=== PATIENT | male | born 1930 | race Caucasian/White ===

== ENCOUNTER 2017-11-21 08:20 | Emergency (ER) | payer OTHER ==
[~2017-11-21] VITALS: Ht 165.1 cm; Wt 74.8 kg
[~2017-11-21 08:20] MED LIST: AMLODIPINE BESYL5 M1 PO; ATORVASTATIN CA10 M1 PO; CRANBERRY425 MG PO; FISH OIL 1,001000 MG PO; FOSINOPRIL SODI20 M1 PO; LO-DOSE ASPIRIN81 MG PO; MECLIZINE HCL25 MG PO; METOPROLOL TART25 M1 PO; MULTIVITAMINS1 EAC7 PO; NEXIUM40 M1 PO; PLAVIX75 M1 PO; POLYETHYLENE G255 GM PO; SM CALCIUM PO; SYNTHROID50 MCG PO; TAMSULOSIN HCL0.4 M1 PO; VITAMIN D31000 UNI1 PO
[2017-11-21 08:25] VITALS: BP 153/71
--- NOTE | 2017-11-21 09:03 | ED ANIMAL BITE/WOUND CHECK ---
History of Present Illness General Chief Complaint: Suture Removal/Wound Recheck Stated Complaint: SUTURE REMOVAL Source: patient, old records Exam Limitations: no limitations Vital Signs & Intake/Output Vital Signs & Intake/Output Vital Signs Date Time Temp Pulse Resp B/P B/P Pulse O2 O2 Flow FiO2 Mean Ox Delivery Rate 11/21 0825 98.7 80 20 153/71 98 Room Air Allergies Coded Allergies: Penicillins (Severe, UNKNOWN PER PT 01/29/17) amoxicillin (Mild, RASH 01/24/17) pneumococcal vaccine (Mild, RASH AND RED ALL OVER BODY FROM PNEUMONIA SHOT 01/29) gemfibrozil (UNKNOWN PER PT 01/29/17) Reconcile Medications Amlodipine Besylate 5 MG TABLET 1 TAB PO 0800 BP (Reported) Atorvastatin Calcium 10 MG TABLET 1 TAB PO 1900 HIGH CHOLESTROL (Reported) Cholecalciferol (Vitamin D3) (Vitamin D3) 1,000 UNIT CAPSULE 1 CAP PO 1400 HEALTH SUPPLEMENT (Reported) Clopidogrel Bisulfate (Plavix) 75 MG TABLET 1 TAB PO DAILY STROKE PREVENTION Cranberry Extract (Cranberry) (Unknown Strength) CAPSULE (Unknown Dose) PO DAILY SUPPLEMENT (Reported) Esomeprazole (Nexium) 40 MG CAPSULE.DR 1 CAP PO 0700 ACID REFLUX (Reported) Fosinopril Sodium 20 MG TABLET 1 TAB PO 0800 BP (Reported) Levothyroxine Sodium (Synthroid) 50 MCG TABLET 1 TAB PO 0700 THYROID HEALTH ( Reported) Meclizine HCl 25 MG TABLET 1 TAB PO TIDPRN PRN DIZZINESS Metoprolol Tartrate 25 MG TABLET 25 MG PO BID A.FIB . Multivitamin With Minerals (Multivitamins With Minerals) 1 EACH TABLET 1 TAB PO DAILY SUPPLEMENT (Reported) [place]-3/Dha/Epa/Fish Oil (Fish Oil 1,000 MG Softgel) (Unknown Strength) CAPSULE (Unknown Dose) PO 0800 OMEGA RED SUPPLEMENT (Reported) Polyethylene Glycol 3350 17 GRAM/DOSE POWDER 17 GM PO 1400 GI (Reported) Tamsulosin HCl 0.4 MG CAP.ER.24H 1 CAP PO 1730 PROSTATE (Reported) Triage Note: PT TO ED SUTURE REMOVAL TO LEFT THUMB, PLACED 11/10 HERE. DENIES PAIN. Triage Nurses Notes Reviewed? yes Onset: Last week Duration: week(s):, better Timing: recent history Injury Environment: home Is Injury an Animal Bite? No Severity: mild No Modifying Factors: none HPI: Patient presents for suture removal left thumb. He denies fever chills nausea vomiting diarrhea abdominal pain chest pain shortness breath headache dysuria rash bleeding. Past History Travel History Traveled to [place] past 21 day No Medical History Any Pertinent Medical History? see below for history Neurological: NONE EENT: NONE Cardiovascular: AFIB, hypertension, hyperlipidemia Respiratory: NONE Gastrointestinal: GERD Hepatic: NONE Renal: benign prost hyperplasia Musculoskeletal: NONE Psychiatric: NONE Endocrine: hypothyroidism Blood Disorders: NONE Cancer(s): NONE History of MRSA: No History of VRE: No History of CDIFF: No Tetanus Vaccine: 11/10/17 Surgical History Surgical History: non-contributory Psychosocial History Who do you live with Spouse Services at Home None What is your primary language Yakut Tobacco Use: Never used ETOH Use: denies use Illicit Drug Use: denies illicit drug use Family History Family History, If Any: BROTHER Family hx of lung cancer Hx Contributory? No Review of Systems Review of Systems Constitutional: Reports: no symptoms. EENTM: Reports: no symptoms. Respiratory: Reports: no symptoms. Cardiovascular: Reports: no symptoms. GI: Reports: no symptoms. Genitourinary: Reports: no symptoms. Musculoskeletal: Reports: no symptoms. Skin: Reports: no symptoms. Neurological/Psychological: Reports: no symptoms. Hematologic/Endocrine: Reports: no symptoms. Immunologic/Allergic: Reports: no symptoms. All Other Systems: Reviewed and Negative Physical Exam Physical Exam General Appearance: well developed/nourished, mild distress Head: atraumatic Eyes: Bilateral: PERRL, EOMI. Ears, Nose, Throat: normal pharynx, normal ENT inspection, hearing grossly normal Neck: normal inspection, supple Respiratory: normal breath sounds Cardiovascular: regular rate/rhythm Peripheral Pulses: 4+ carotid (R), 4+ carotid (L) Gastrointestinal: soft, non-tender Back: normal inspection, normal range of motion Extremities: normal range of motion, no ligament instability Neurologic/Psych: awake, alert, oriented x 3, normal mood/affect Skin: intact, normal color, warm/dry, left thumb 4 sutures intact healing well without discharge erythema Lymphatic: no anterior cervical trevor Progress Differential Diagnosis: abscess, cellulitis Plan of Care: 4 sutures removed Departure Departure Time of Disposition: 900 Disposition: HOME OR SELF CARE Condition: Stable Clinical Impression Primary Impression: Encounter for removal of sutures Referrals: Huan STONE,Josh Knight (PCP/Family) Additional Instructions: Wear splint for protection for a few days Departure Forms: Customer Survey General Discharge Information
== END 2017-11-21 09:25 ==
LOC: ERH 08:20
DX: Z48.02 Encounter for removal of sutures (principal)